=== PATIENT | male | born 1975 | race Caucasian/White ===

== ENCOUNTER 2019-12-03 10:40 | Inpatient (IN) | payer MEDICAID, OTHER ==
[~2019-12-03] VITALS: Ht 180.3 cm; Wt 74.2 kg
--- NOTE | 2019-12-03 11:05 | NUR ---
TASK RN: PT REPORTS SKIN INFECTION ON TOP OF HEAD FROM PIMPLE FOR 3 DAYS AND RIGHT ARM ABSCESS FROM IV DRUG USE. PLACED ON VITALS MONITORS. CALL LIGHT WITHIN REACH. ERMD AT BEDSIDE FOR EVAL.
[2019-12-03] MEDS ORDERED: VANCOMYCIN PER PHARMACY MC ONE (11:30)
[2019-12-03] MEDS ORDERED: SODIUM CHLORIDE 0.9% 1,000ML IVBOLUS ONE ×2 (11:30→12:00)
[2019-12-03 11:32] LABS: MEAN CORPUSCULAR HGB CONC 33.4 g/dL (33.2-36.2); MEAN CORPUSCULAR VOLUME 89.9 fL (81-97); MEAN PLATELET VOLUME 7.6 fL (7.4-10.4); PLATELET COUNT 331 x10^3/uL (130-400); RED BLOOD COUNT 4.76 x10^6/uL (4.38-5.82); RED CELL DISTRIBUTION WIDTH 13.3 % (9.4-14.8)
[2019-12-03 11:45] LABS: ALANINE AMINOTRANSFERASE 19 U/L (12-78); ALBUMIN 2.8 g/dL (3.4-5.0); ANION GAP 7 mmol/L (5-15); CALCIUM 8.9 mg/dL (8.5-10.1); CHLORIDE 97 mmol/L (98-107)
[2019-12-03 11:46] LABS: BASOPHILS # (AUTO) 0.06 x10^3/uL (0-0.1); BASOPHILS % (AUTO) 0 % (0-1); EOSINOPHILS # (AUTO) 0.01 x10^3/uL (0-0.4); EOSINOPHILS % (AUTO) 0 % (1-7); LYMPHOCYTES # (AUTO) 1.03 x10^3/uL (1-3.4); LYMPHOCYTES % (AUTO) 6 % (22-44); MD SCAN; MONOCYTES # (AUTO) 1.29 x10^3/uL (0.2-0.8); MONOCYTES % (AUTO) 8 % (2-9); NEUTROPHILS # (AUTO) 14.41 x10^3/uL (1.8-6.8); NEUTROPHILS % (AUTO) 86 % (42-75)
[2019-12-03 11:47] LABS: ALKALINE PHOSPHATASE 151 U/L (45-117); BILIRUBIN,TOTAL 0.3 mg/dL (0.2-1.0); TOTAL PROTEIN 7.7 g/dL (6.4-8.2)
[2019-12-03] MEDS ORDERED: AMPICILLIN/SULBACTAM 3 GM in SODIUM CHLORIDE 0.9% 100 ML IV ONE (12:00)
[2019-12-03] MEDS ORDERED: VANCOMYCIN 1,800 MG in SODIUM CHLORIDE 0.9% 250 ML IV ONE ×2 (12:00→15:00)
[2019-12-03] MEDS: SODIUM CHLORIDE 0.9% 1,000 ML IV SCH (12:57)
[2019-12-03] MEDS ORDERED: ONDANSETRON 2MG/ML, 2ML IVPush PRN (13:00)
[2019-12-03] MEDS ORDERED: ACETAMINOPHEN 325 MG TABLET PO PRN (13:00)
[2019-12-03] MEDS ORDERED: DOCUSATE 100 MG CAPSULE PO PRN (13:00)
[2019-12-03] MEDS ORDERED: POLYETHYLENE GLYCOL 17 GM PACKET PO PRN (13:00)
[2019-12-03] MEDS ORDERED: BISACODYL 10 MG SUPP PR PRN (13:00)
[2019-12-03] MEDS ORDERED: LORazepam 2 MG/ML, 1ML IV PRN ×4 (13:30)
[2019-12-03] MEDS ORDERED: LORazepam 0.5MG TABLET PO PRN (13:30)
[2019-12-03] MEDS ORDERED: LORazepam 1MG TABLET PO PRN ×2 (13:30)
[2019-12-03 13:40] VITALS: BP 155/104
[2019-12-03] MEDS: KETOROLAC 30 MG/1 ML IV PRN (13:56)
[2019-12-03] MEDS ORDERED: VANCOMYCIN PER PHARMACY MC PRN (14:00)
[2019-12-03] MEDS ORDERED: PHARMACOKINETIC MONITORING MC PRN ×2 (14:00)
[2019-12-03 14:40] LABS: INTERNATIONAL NORMALIZED RATIO 1.04 (0.93-1.1); PROTHROMBIN TIME 10.7 Seconds (9.6-11.5)
[2019-12-03 14:52] VITALS: BP 155/104
[2019-12-03] MEDS ORDERED: OMNIPAQUE 350 MG/ML, 100ML BOTTLE ONE (15:18)
[2019-12-03] MEDS: ENOXAPARIN 40 MG/0.4 ML SQ SCH (15:47)
[2019-12-03] MEDS: AMPICILLIN/SULBACTAM 3 GM in SODIUM CHLORIDE 0.9% 100 ML IV SCH (15:48)
[2019-12-03 20:13] VITALS: BP 141/91
[2019-12-03] MEDS: VANCOMYCIN 1,500 MG in SODIUM CHLORIDE 0.9% 250 ML IV SCH (22:33)
[2019-12-04] MEDS: AMPICILLIN/SULBACTAM 3 GM in SODIUM CHLORIDE 0.9% 100 ML IV SCH ×3 (00:12→15:57)
[2019-12-04 01:34] VITALS: BP 142/89
[2019-12-04] MEDS: SODIUM CHLORIDE 0.9% 1,000 ML IV SCH (02:43)
[2019-12-04 05:44] LABS: BASOPHILS # (AUTO) 0.07 x10^3/uL (0-0.1); BASOPHILS % (AUTO) 1 % (0-1); EOSINOPHILS # (AUTO) 0.22 x10^3/uL (0-0.4); EOSINOPHILS % (AUTO) 2 % (1-7); LYMPHOCYTES # (AUTO) 1.05 x10^3/uL (1-3.4); LYMPHOCYTES % (AUTO) 9 % (22-44); MD NO; MEAN CORPUSCULAR HEMOGLOBIN 30.2 pg (27.5-34.5); MEAN CORPUSCULAR HGB CONC 33.2 g/dL (33.2-36.2); MEAN PLATELET VOLUME 8.1 fL (7.4-10.4); MONOCYTES # (AUTO) 0.88 x10^3/uL (0.2-0.8); MONOCYTES % (AUTO) 8 % (2-9); NEUTROPHILS # (AUTO) 9.22 x10^3/uL (1.8-6.8); NEUTROPHILS % (AUTO) 81 % (42-75); PLATELET COUNT 292 x10^3/uL (130-400); RED BLOOD COUNT 4.13 x10^6/uL (4.38-5.82); RED CELL DISTRIBUTION WIDTH 13.4 % (9.4-14.8)
[2019-12-04 05:56] LABS: ALBUMIN 2.3 g/dL (3.4-5.0); ANION GAP 6 mmol/L (5-15); CALCIUM 8.7 mg/dL (8.5-10.1); CHLORIDE 105 mmol/L (98-107)
[2019-12-04 06:08] LABS: ALANINE AMINOTRANSFERASE 14 U/L (12-78); ALKALINE PHOSPHATASE 121 U/L (45-117); BILIRUBIN,TOTAL 0.4 mg/dL (0.2-1.0); CREATININE 0.64 mg/dL (0.7-1.3); TOTAL PROTEIN 6.5 g/dL (6.4-8.2)
[2019-12-04] MEDS: KETOROLAC 30 MG/1 ML IV PRN (06:23)
[2019-12-04 07:10] VITALS: BP 161/96
[2019-12-04] MEDS: VANCOMYCIN 1,500 MG in SODIUM CHLORIDE 0.9% 250 ML IV SCH (10:57)
[2019-12-04 12:39] VITALS: BP 159/106
[2019-12-04 14:29] VITALS: BP 155/101
[2019-12-04] MEDS: LORazepam 1MG TABLET PO PRN ×2 (14:48→22:10)
[2019-12-04] MEDS ORDERED: LABETALOL 5MG/ML, 20ML IVPush PRN (15:30)
[2019-12-04] MEDS ORDERED: ENALAPRILAT 1.25 MG/ML, 1ML IV PRN (15:30)
[2019-12-04] MEDS: ENOXAPARIN 40 MG/0.4 ML SQ SCH (15:57)
[2019-12-04] MEDS: MUPIROCIN OINT 2%, 22GM TP SCH ×2 (15:57→22:02)
[2019-12-04 16:15] VITALS: BP 159/92
[2019-12-04] MEDS: FLUTICASONE/VILANTEROL 100-25MCG/INH INH SCH (18:02)
[2019-12-04] MEDS: ALBUTEROL HFA 90 MCG/SPRAY INH SCH ×2 (18:03→22:02)
[2019-12-04 20:52] VITALS: BP_SYST 143; BP_SYST 148; BP_DIAS 100; BP_DIAS 106
[2019-12-05] MEDS: AMPICILLIN/SULBACTAM 3 GM in SODIUM CHLORIDE 0.9% 100 ML IV SCH ×3 (00:07→15:41)
[2019-12-05 00:41] VITALS: BP 148/94
[2019-12-05 05:45] LABS: BASOPHILS # (AUTO) 0.08 x10^3/uL (0-0.1); BASOPHILS % (AUTO) 1 % (0-1); EOSINOPHILS # (AUTO) 0.23 x10^3/uL (0-0.4); EOSINOPHILS % (AUTO) 3 % (1-7); LYMPHOCYTES % (AUTO) 18 % (22-44); MD NO; MEAN CORPUSCULAR HGB CONC 32.9 g/dL (33.2-36.2); MEAN PLATELET VOLUME 7.5 fL (7.4-10.4); MONOCYTES # (AUTO) 0.48 x10^3/uL (0.2-0.8); MONOCYTES % (AUTO) 6 % (2-9); NEUTROPHILS # (AUTO) 5.57 x10^3/uL (1.8-6.8); NEUTROPHILS % (AUTO) 72 % (42-75); PLATELET COUNT 317 x10^3/uL (130-400); RED BLOOD COUNT 4.06 x10^6/uL (4.38-5.82); RED CELL DISTRIBUTION WIDTH 13.6 % (9.4-14.8)
[2019-12-05 05:46] LABS: CHLORIDE 104 mmol/L (98-107)
[2019-12-05 06:11] LABS: ALANINE AMINOTRANSFERASE 15 U/L (12-78); ALBUMIN 2.2 g/dL (3.4-5.0); ALKALINE PHOSPHATASE 103 U/L (45-117); ANION GAP 8 mmol/L (5-15); BILIRUBIN,TOTAL 0.1 mg/dL (0.2-1.0); CALCIUM 8.4 mg/dL (8.5-10.1); CREATININE 0.67 mg/dL (0.7-1.3); TOTAL PROTEIN 6.5 g/dL (6.4-8.2); VANCOMYCIN,RANDOM 5.5 mcg/mL
[2019-12-05] MEDS: ALBUTEROL HFA 90 MCG/SPRAY INH SCH ×4 (06:14→20:58)
[2019-12-05] MEDS ORDERED: VANCOMYCIN 1,500 MG in SODIUM CHLORIDE 0.9% 250 ML IV ONE (07:00)
[2019-12-05 07:13] VITALS: BP 167/97
[2019-12-05] MEDS: FLUTICASONE/VILANTEROL 100-25MCG/INH INH SCH (08:39)
[2019-12-05] MEDS: MUPIROCIN OINT 2%, 22GM TP SCH ×3 (08:40→20:58)
[2019-12-05] MEDS: NICOTINE 21 MG/24 HR PATCH.TD24 TD SCH (08:40)
[2019-12-05] MEDS: ENOXAPARIN 40 MG/0.4 ML SQ SCH (11:21)
[2019-12-05] MEDS: THIAMINE 100 MG in DEXTROSE 5% 50 ML IVPB SCH (11:21)
[2019-12-05 12:30] VITALS: BP 158/97
[2019-12-05 18:30] VITALS: BP 153/88
[2019-12-05] MEDS: VANCOMYCIN 1,500 MG in SODIUM CHLORIDE 0.9% 250 ML IV SCH (20:58)
[2019-12-05] MEDS: KETOROLAC 30 MG/1 ML IV PRN (23:26)
[2019-12-06] MEDS: AMPICILLIN/SULBACTAM 3 GM in SODIUM CHLORIDE 0.9% 100 ML IV SCH ×2 (00:27→07:34)
[2019-12-06 00:53] VITALS: BP 154/89
[2019-12-06] MEDS: ALBUTEROL HFA 90 MCG/SPRAY INH SCH ×2 (06:26→11:54)
[2019-12-06 07:23] VITALS: BP 162/101
[2019-12-06] MEDS: FLUTICASONE/VILANTEROL 100-25MCG/INH INH SCH (07:34)
[2019-12-06] MEDS: MUPIROCIN OINT 2%, 22GM TP SCH (07:35)
[2019-12-06] MEDS: NICOTINE 21 MG/24 HR PATCH.TD24 TD SCH (07:35)
[2019-12-06] MEDS ORDERED: AMOX1TAB64 PO (09:31)
[2019-12-06] MEDS: VANCOMYCIN 1,500 MG in SODIUM CHLORIDE 0.9% 250 ML IV SCH (09:56)
[2019-12-06] MEDS: THIAMINE 100 MG in DEXTROSE 5% 50 ML IVPB SCH (11:54)
[2019-12-06] MEDS: ENOXAPARIN 40 MG/0.4 ML SQ SCH (11:54)
== END 2019-12-06 13:16 | disposition home or self-care (01) | DRG 872 ==
LOC: ED 11:15 → EDIP 11:58 → 3N 12:55
PROVIDERS: ADMIT Family Medicine; ATTEND Family Medicine
DX: A41.9 Sepsis, unspecified organism (principal); E44.0 Moderate protein-calorie malnutrition; L03.811 Cellulitis of head [any part, except face]; E87.1 Hypo-osmolality and hyponatremia; F15.90 Other stimulant use, unspecified, uncomplicated; F17.200 Nicotine dependence, unspecified, uncomplicated; H10.021 Other mucopurulent conjunctivitis, right eye; I10 Essential (primary) hypertension; L01.00 Impetigo, unspecified; M43.6 Torticollis; Z62.810 Personal history of physical and sexual abuse in childhood; R74.8 Abnormal levels of other serum enzymes; Z68.22 Body mass index [BMI] 22.0-22.9, adult
CPT/HCPCS: 36415; 70460; 70491; 80053; 80202; 83605; 83735; 84100; 84145; 84443; 85025; 85610; 87040; 87070; 87147; 87186; 87205; G0378; J0295; J1650; J1885; J3370; J3411; Q9967; J7030; J7050

== ENCOUNTER 2020-08-27 16:14 | Emergency (ER) | payer MEDICAID ==
[~2020-08-27] VITALS: Ht 180.3 cm; Wt 75.7 kg
[~2020-08-27 16:14] MED LIST: AMLO-150 PO; AMOX1TAB12 PO; AMOX1TAB64 PO; CLIN300C9 PO; OXYC1TAB14 PO
[2020-08-27 16:41] VITALS: BP 126/87
[2020-08-27] MEDS ORDERED: SODIUM CHLORIDE 0.9% 1,000ML IVBOLUS ONE (17:00)
[2020-08-27] MEDS ORDERED: SODIUM CHLORIDE FLUSH 10ML SYR IVF ONE (17:00)
[2020-08-27 18:01] LABS: BASOPHILS % (AUTO) 1 % (0-1); EOSINOPHILS % (AUTO) 0 % (1-7); LYMPHOCYTES % (AUTO) 6 % (22-44); MEAN CORPUSCULAR HGB CONC 34.1 g/dL (33.2-36.2); MEAN PLATELET VOLUME 8.5 fL (7.4-10.4); MONOCYTES % (AUTO) 5 % (2-9); NEUTROPHILS % (AUTO) 88 % (42-75); PLATELET COUNT 316 x10^3/uL (130-400); RED BLOOD COUNT 5.14 x10^6/uL (4.38-5.82); RED CELL DISTRIBUTION WIDTH 12.9 % (9.4-14.8)
[2020-08-27 18:12] LABS: ALBUMIN 3.8 g/dL (3.4-5.0); ANION GAP 8 mmol/L (5-15); CHLORIDE 101 mmol/L (98-107)
[2020-08-27 18:16] LABS: ALANINE AMINOTRANSFERASE 39 U/L (12-78); ALKALINE PHOSPHATASE 148 U/L (45-117); BILIRUBIN,TOTAL 0.5 mg/dL (0.2-1.0); CREATININE 0.99 mg/dL (0.7-1.3); TOTAL PROTEIN 8.9 g/dL (6.4-8.2)
--- NOTE | 2020-08-27 20:00 | NUR ---
called in the lobby no answer
--- NOTE | 2020-08-27 20:13 | NUR ---
called 2nd time. no answer
--- NOTE | 2020-08-27 20:38 | NUR ---
3rd call. no answer. not in the lobby
== END 2020-08-27 20:40 | disposition left against medical advice (07) ==
LOC: ED 20:30
DX: A41.9 Sepsis, unspecified organism (principal); L03.811 Cellulitis of head [any part, except face]; Z59.0 Homelessness
CPT/HCPCS: 36415; 80053; 83605; 85025; 87040; 99283

== ENCOUNTER 2020-08-28 06:52 | Emergency (ER) | payer MEDICAID ==
[~2020-08-28] VITALS: Ht 180.3 cm; Wt 75.8 kg
--- NOTE | 2020-08-28 07:08 | NUR ---
PT AMBULATORY TO ROOM FROM TRIAGE, PT STATES HE HIT HIS HEAD ON A LARGE DUMPSTER LID, PT STATES HES HOMELESS AND HAS NOT BEEN ABLE TO CLEAN WOUND ON TOP OF HEAD. ERYTHEMA NOTED, WHITE BORDER, WITH SKIN PEALING UP. PT STATES HES BEEN IN THE SUN WELL WITH NO SUNSCREEN. STATES PAIN IS A 8/10. CALL LIGHT WITHIN REACH
--- NOTE | 2020-08-28 07:12 | NUR ---
PA AT BS
[2020-08-28] MEDS ORDERED: ACETAMINOPHEN 500 MG TABLET ONE (07:39)
[2020-08-28] MEDS ORDERED: IBUPROFEN 600 MG TABLET ONE (07:39)
[2020-08-28] MEDS ORDERED: IBUPROFEN 800 MG TABLET ONE (07:41)
[2020-08-28 07:55] VITALS: BP 156/108
[2020-08-28] MEDS ORDERED: IBUPROFEN 800 MG TABLET PO ONE (08:00)
[2020-08-28] MEDS ORDERED: ACETAMINOPHEN 500 MG TABLET PO ONE (08:00)
--- NOTE | 2020-08-28 08:05 | NUR ---
PT RESTING ON GURNEY, RESPIRATIONS EVEN AND UNLABORED. NADN. CALL LIGHT WITHIN REACH. PT MEDICATED PER EMAR
[2020-08-28] MEDS ORDERED: NEOSPORIN OINT. PKT 1 PACKET ONE (08:19)
--- NOTE | 2020-08-28 08:23 | NUR ---
WOUND CARE PROVIDED, Patient given discharge instructions and RX, they have confirmed that they understand the instructions. Patient ambulatory with steady gait.
== END 2020-08-28 08:39 | disposition home or self-care (01) ==
LOC: ED 07:02
DX: L03.811 Cellulitis of head [any part, except face] (principal); I10 Essential (primary) hypertension; F17.210 Nicotine dependence, cigarettes, uncomplicated
CPT/HCPCS: 82962; 99406